=== PATIENT | male | born 1975 | race Caucasian/White ===

== ENCOUNTER 2025-03-28 03:28 | Emergency (ER) | payer SELFPAY ==
[~2025-03-28] VITALS: Ht 167.6 cm; Wt 80.0 kg
[2025-03-28 03:49] VITALS: BP 156/74; TEMP 36.6; O2SAT 98
[2025-03-28 03:51] VITALS: PULSE 77; RESP 18; O2SAT 99
[2025-03-28] MEDS: KETOROLAC 15MG/ML VIAL IM ONE (04:08)
== END 2025-03-28 05:48 | disposition home or self-care (01) ==
LOC: ER 03:28
DX: S62.615A Displaced fracture of proximal phalanx of left ring finger, initial encounter for closed fracture (principal); W23.0XXA Caught, crushed, jammed, or pinched between moving objects, initial encounter; Y93.89 Activity, other specified; Y92.89 Other specified places as the place of occurrence of the external cause; Y99.8 Other external cause status
CPT/HCPCS: 29125; 73130; 99283